=== PATIENT | female | born 1990 ===

== ENCOUNTER 2024-09-07 16:37 | Emergency (ER) | payer MEDICAID ==
[~2024-09-07] VITALS: Ht 162.6 cm; Wt 70.5 kg
[2024-09-07 16:41] VITALS: TEMP 98.4
[2024-09-07 17:07] LABS: BASOPHILS % (AUTO) 0.2 % (0.0-2.0); EOSINOPHILS % (AUTO) 0.3 % (1.0-6.0); HEMATOCRIT 38.9 % (36-46); HEMOGLOBIN 12.7 g/dL (12.0-16.0); LYMPHOCYTES # (AUTO) 3.6 K/uL (1.0-4.8); LYMPHOCYTES % (AUTO) 33.5 % (22.0-44.0); MEAN CORPUSCULAR HEMOGLOBIN 27.3 pg (26.0-34.0); MEAN CORPUSCULAR HGB CONC 32.5 G/dL (31.0-37.0); MEAN CORPUSCULAR VOLUME 84 fL (80-100); MONOCYTES # (AUTO) 0.7 K/uL (0.1-1.0); MONOCYTES % (AUTO) 6.1 % (2.0-9.0); NEUTROPHILS # (AUTO) 6.5 K/uL (1.8-7.7); NEUTROPHILS % (AUTO) 59.9 % (40.0-70.0); PLATELET COUNT (AUTO) 270 K/uL (150-450); RED BLOOD CELL COUNT(AUTO) 4.63 MIL/uL (4.00-5.20); RED CELL DISTRIBUTION WIDTH 14.4 % (11.5-14.5); WHITE BLOOD COUNT (AUTO) 10.8 K/uL (4.5-11.0)
[2024-09-07 17:15] LABS: ANION GAP 12 mmol/L (8-16); CALCIUM, TOTAL 8.9 mg/dL (8.8-10.5); CARBON DIOXIDE 23 mmol/L (22-29); CHLORIDE 102 mmol/L (98-107); CREATININE 0.64 mg/dL (0.60-1.30); GLOMERULAR FILTR. RATE CALC > 60 mL/min (>60); GLUCOSE,RANDOM 97 mg/dL (70-110); POTASSIUM 3.3 mmol/L (3.5-5.1); SODIUM SERUM 137 mmol/L (136-145); UREA NITROGEN, BLOOD 15 mg/dL (7-18)
[2024-09-07] MEDS: SODIUM CHLORIDE 0.9% 1,000 ML IV ONE (17:15)
[2024-09-07] MEDS: KETOROLAC TROMETHAMINE 30 MG/ML VIAL IVP ONE (17:16)
[2024-09-07] MEDS: METOCLOPRAMIDE HCL 5 MG/ML 2 ML VIAL IVP ONE (17:16)
[2024-09-07] MEDS: DiphenhydrAMINE HCL 50 MG/ML VIAL IVP ONE (17:16)
[2024-09-07] MEDS ORDERED: ACET-3385 PO (17:46)
[2024-09-07] MEDS ORDERED: IBUP-1492 PO (17:46)
[2024-09-07 17:55] VITALS: BP 138/72; PULSE 82; RESP 16; O2SAT 99
== END 2024-09-07 19:25 | disposition home or self-care (01) ==
LOC: EMS 16:37
DX: R51.9 Headache, unspecified (principal); Z98.890 Other specified postprocedural states
CPT/HCPCS: 99284; 96374; 96375; 96361; 80048; 84703; 85025; 36415; J1200; J1885; J2765; J7030